=== PATIENT | male | born 1970 | race Asian ===

== ENCOUNTER 2017-01-23 09:19 | Emergency (ER) | payer OTHER ==
[~2017-01-23] VITALS: Ht 165.1 cm; Wt 106.3 kg
[2017-01-23] MEDS ORDERED: SODIUM CHLORIDE FLUSH 10ML SYR IVF ONE (10:30)
[2017-01-23] MEDS ORDERED: ASPIRIN 81 MG TABLET CHEW PO ONE (10:30)
[2017-01-23] MEDS ORDERED: PLEASE ENTER ALLERGIES MC SCH ×2 (10:30)
[2017-01-23] MEDS ORDERED: MORPHINE SULFATE 4 MG/ML, 1ML IVPush PRN (10:30)
[2017-01-23] MEDS ORDERED: ONDANSETRON 2MG/ML, 2ML IVPush ONE (10:30)
[2017-01-23 10:42] LABS: HEMATOCRIT 43.8 % (39.2-51.8); HEMOGLOBIN 14.9 g/dL (13.7-18.0); WHITE BLOOD COUNT 11.4 x10^3/uL (3.4-10)
[2017-01-23] MEDS ORDERED: ONDANSETRON 2MG/ML, 2ML ONE (10:42)
[2017-01-23] MEDS ORDERED: MORPHINE SULFATE 4 MG/ML, 1ML ONE (10:42)
[2017-01-23] MEDS ORDERED: ASPIRIN 81 MG TABLET CHEW ONE (10:42)
[2017-01-23 10:55] LABS: BLOOD UREA NITROGEN 11 mg/dL (7-18)
[2017-01-23] MEDS ORDERED: LOSA100T6 PO (10:58)
[2017-01-23] MEDS ORDERED: ASPI-496 PO (10:58)
[2017-01-23] MEDS ORDERED: METF1000 PO (10:58)
[2017-01-23] MEDS ORDERED: INSU100I13 SQ (10:58)
[2017-01-23] MEDS ORDERED: METO-93 PO (10:58)
[2017-01-23] MEDS ORDERED: ATOR20TA PO (10:58)
[2017-01-23] MEDS ORDERED: INSU100C SQ-INSULIN (10:58)
[2017-01-23] MEDS ORDERED: CHOL200074 PO (10:58)
[2017-01-23] MEDS ORDERED: POTA2TAB8 PO (10:58)
[2017-01-23] MEDS ORDERED: MAGN250T8 PO (10:58)
[2017-01-23 11:01] LABS: IS PT STATUS REG ER OR PRE ER? YES
[2017-01-23] MEDS ORDERED: OMNIPAQUE 350 MG/ML, 100ML BOTTLE ONE (12:15)
[2017-01-23 13:25] VITALS: BP 122/89
== END 2017-01-23 13:27 | disposition home or self-care (01) ==
LOC: ED 13:00
DX: J15.9 Unspecified bacterial pneumonia (principal); J90 Pleural effusion, not elsewhere classified; K44.9 Diaphragmatic hernia without obstruction or gangrene; K76.0 Fatty (change of) liver, not elsewhere classified; E11.9 Type 2 diabetes mellitus without complications; E78.5 Hyperlipidemia, unspecified; I10 Essential (primary) hypertension; Z87.891 Personal history of nicotine dependence
CPT/HCPCS: 36415; 71010; 71275; 80048; 82040; 83880; 84484; 85025; 93005; 99285; Q9967